=== PATIENT | male | born 1975 | race Caucasian/White ===

== ENCOUNTER 2025-03-08 19:47 | Emergency (ER) | payer MEDICAID ==
[~2025-03-08] VITALS: Ht 177.8 cm; Wt 70.0 kg
[2025-03-08 19:53] VITALS: O2SAT 100
[2025-03-08] MEDS ORDERED: ACET-2708 MT (20:57)
[2025-03-08] MEDS ORDERED: LIDO-53 TP (20:57)
[2025-03-08 21:09] VITALS: BP 123/87; PULSE 87; RESP 18; TEMP 36.8; O2SAT 98
== END 2025-03-08 21:25 | disposition home or self-care (01) ==
LOC: ER 19:47
DX: S70.02XA Contusion of left hip, initial encounter (principal); M16.12 Unilateral primary osteoarthritis, left hip; Z79.899 Other long term (current) drug therapy; W19.XXXA Unspecified fall, initial encounter; Y93.89 Activity, other specified; Y92.89 Other specified places as the place of occurrence of the external cause; Y99.8 Other external cause status
CPT/HCPCS: 73502; 99283